=== PATIENT | male | born 1970 | race Caucasian/White ===

== ENCOUNTER 2018-10-31 18:21 | Inpatient (IN) | payer OTHER ==
[2018-10-31 19:38] VITALS: BMI 19.5
--- NOTE | 2018-10-31 22:06 | HP ---
COWS - Scale Resting Pulse: 1= [place] 81-100 Sweatin=Flushed/Facial Moisture Restless Observation: 1= Difficult to Sit Still Pupil Size: 1= Pupils >than Normal Bone or Joint Aches: 2= Severe Diffuse Aches Runny Nose/ Eye Tearin= Runny Nose/Eyes GI Upset > 30mins: 2= Nausea/Diarrhea Tremor Observation: 2= Slight Tremor Visible Yawning Observation: 1= 1-2x During Session Anxiety or Irritability: 1=Feels Anxious/Irritable Goose Flesh Skin: 0=Smooth Skin COWS Score: 15 CIWA Score - Admission Criteria OASAS Guidelines: Admission for Medically Managed Detox: Requires at least one of the followin. CIWA greater than 12 2. Seizures within the past 24 hours 3. Delirium tremens within the past 24 hours 4. Hallucinations within the past 24 hours 5. Acute intervention needed for co occurring medical disorder 6. Acute intervention needed for co occurring psychiatric disorder 7. Severe withdrawal that cannot be handled at a lower level of care (continued vomiting, continued diarrhea, abnormal vital signs) requiring intravenous medication and/or fluids 8. Admission ROS [facility] - [facility] Chief Complaint: DEPENDENT ON HEROIN ONLY Allergies/Adverse Reactions: Allergies Allergy/AdvReac Type Severity Reaction Status Date / Time No Known Allergies Allergy Verified 05/22/15 21:23 History of Present Illness: THE PT. IS REQUESTING ADMISSION TO THE DETOX UNIT AND CAME FOR H AND PE Exam Limitations: No Limitations - Ebola screening Have you traveled outside of the country in the last 21 days: No (N) Have you had contact with anyone from an Ebola affected area: No Have you been sick,other than usual withdrawal symptoms: No Do you have a fever: No - Review of Systems Constitutional: See HPI, Malaise, Weakness EENT: reports: See HPI, Tearing Respiratory: reports: See HPI Cardiac: reports: See HPI GI: reports: See HPI, Nausea, Abdominal cramping : reports: No Symptoms Reported, See HPI Integumentary: reports: See HPI, Flushing, Sweating Neuro: reports: See HPI, Headache, Tremors, Weakness Endocrine: reports: See HPI Hematology: reports: See HPI Psychiatric: reports: Judgement Intact, Orientated x3, Anxious, Depressed Patient History - Patient Medical History Hx Anemia: No Hx Asthma: No Hx Chronic Obstructive Pulmonary Disease (COPD): No Hx Cancer: No Hx Cardiac Disorders: No Hx Congestive Heart Failure: No Hx Hypertension: No Hx Hypercholesterolemia: No Hx Pacemaker: No HX Cerebrovascular Accident: No Hx Seizures: No Hx Dementia: No Hx Diabetes: No Hx Gastrointestinal Disorders: No Hx Liver Disease: No Hx Genitourinary Disorders: No Hx Sexually Transmitted Disorders: No Hx Renal Disease (ESRD): No Hx Thyroid Disease: No Hx Human Immunodeficiency Virus (HIV): No (last 2013 negative) Hx Hepatitis C: No Hx Depression: No Hx Suicide Attempt: No Hx Bipolar Disorder: No Hx Schizophrenia: No - Patient Surgical History Past Surgical History: No Hx Neurologic Surgery: No Hx Cataract Extraction: No Hx Cardiac Surgery: No Hx Lung Surgery: No Hx Breast Surgery: No Hx Breast Biopsy: No Hx Abdominal Surgery: No Hx Appendectomy: No Hx Cholecystectomy: Yes (open cholecystectomy in 2009 in pr) Hx Genitourinary Surgery: No Hx Section: No Hx Orthopedic Surgery: No Anesthesia Reaction: No - PPD History Date: 05/24/15 - Smoking Cessation Smoking history: Current every day smoker Have you smoked in the past 12 months: Yes Aproximately how many cigarettes per day: 40 Cigars Per Day: 0 Hx Chewing Tobacco Use: No Initiated information on smoking cessation: Yes 'Breaking Loose' booklet given: 10/31/18 - Substance & Tx. History Hx Alcohol Use: No Hx Substance Use: Yes Substance Use Type: Heroin Hx Substance Use Treatment: Yes - Substances Abused Heroin Route: Inhalation Frequency: Daily Amount used: 10 B/D Age of first use: 14 Date of Last Use: 10/31/18 Family Disease History - Family Disease History Family Disease History: CA: Mother (MOTHER HAD CA. OF THE BREAST AND ) Admission Physical Exam [facility] - Vital Signs Vital Signs: Vital Signs - 24 hr 10/31/18 19:36 Temperature 98.3 F Pulse Rate 97 H Respiratory 18 Rate Blood Pressure 105/66 - Physical General Appearance: Yes: No Apparent Distress, Nourished, Appropriately Dressed , Tremorous, Sweating, Anxious HEENTM: Yes: Hearing grossly Normal, Normocephalic, Normal Voice, ZOIE, Pharynx Normal Respiratory: Yes: Chest Non-Tender, Lungs Clear, Normal Breath Sounds, No Respiratory Distress, No Accessory Muscle Use Neck: Yes: No masses,lesions,Nodules, Supple, Trachea in good position Breast: Yes: Axillae without masses Cardiology: Yes: Regular Rhythm, S1, S2, Tachycardia Abdominal: Yes: Within Normal Limits, Normal Bowel Sounds, Non Tender, Protuberent Back: Yes: Normal Inspection Musculoskeletal: Yes: full range of Motion, Gait Steady, Pelvis Stable, Muscle Pain, Muscle weakness Extremities: Yes: Normal Capillary Refill, Normal Range of Motion, Non-Tender, Tremors Neurological: Yes: nurse prn II-XII NML intact, Fully Oriented, Alert, Motor Strength 5/5, Normal Response Integumentary: Yes: Normal Color, Warm, Moist - Diagnostic (1) Heroin dependence Current Visit: No Status: Chronic (2) Nicotine dependence Current Visit: No Status: Chronic Qualifiers: Nicotine product type: cigarettes Cleared for Admission [facility] - Detox or Rehab [facility] Level of Care: Medically Supervised Detox Regimen/Protocol: Methadone [facility] Breath Alcohol Content Breath Alcohol Content: 0 Urine Drug Screen - Results Drug Screen Negative: No Urine Drug Screen Results: THC-Marijuana, OPI-Opiates Inpatient Rehab Admission - Rehab Decision to Admit Inpatient rehab admission?: No
[2018-10-31] MEDS ORDERED: P-EPHED 60MG/TRIPROLIDI 2.5MG TABLET PO PRN (22:09)
[2018-10-31] MEDS ORDERED: MAGNESIUM HYDROX 2400MG/30ML ORAL SUSPENSION 30 ML CUP PO PRN (22:09)
[2018-10-31] MEDS ORDERED: guaiFENesin/D-METHORPHAN HB 10 ML UNIT-DOSE CUPS PO PRN (22:09)
[2018-10-31] MEDS ORDERED: MAGNESIUM CITRATE 300 ML BOTTLE PO PRN (22:09)
[2018-10-31] MEDS ORDERED: IBUPROFEN 400 MG TABLET (FP) PO PRN (22:09)
[2018-10-31] MEDS ORDERED: MAG HYDROX/AL HYDROX/SIMETH 30 ML UNIT-DOSE CUP PO PRN (22:09)
[2018-10-31] MEDS ORDERED: MENTHOL/PHENOL 1 EACH UD MM PRN (22:09)
[2018-10-31] MEDS ORDERED: LOPERAMIDE HCL 2 MG CAPSULE PO PRN (22:09)
[2018-10-31] MEDS ORDERED: NICOTINE POLACRILEX 4 MG GUM BC PRN (22:09)
[2018-10-31] MEDS ORDERED: METHADONE HCL 10 MG TABLET (FOR DETOX USE ONLY) PO ONE ×2 (23:00)
[2018-11-01] MEDS ORDERED: METHADONE HCL 10 MG TABLET (FOR DETOX USE ONLY) PO ONE ×2 (01:29→10:00)
--- NOTE | 2018-11-01 09:36 | PN ---
[facility] COWS - Scale Resting Pulse: 0= [place] 80 or Below Sweatin= Chills/Flushing Restless Observation: 3= Extraneous Movement Pupil Size: 1= Pupils >than Normal Bone or Joint Aches: 2= Severe Diffuse Aches Runny Nose/ Eye Tearin= Runny Nose/Eyes GI Upset > 30mins: 2= Nausea/Diarrhea Tremor Observation of Outstretched Hands: 2= Slight Tremor Visible Yawning Observation: 1= 1-2x During Session Anxiety or Irritability: 2=Irritable/Anxious Goose Flesh Skin: 0=Smooth Skin COWS Score: 16 [facility] Progress Note (SOAP) Subjective: alert,irritable,anxious,interrupted sleep,pain in the body and back Objective: 11/01/18 09:35 Vital Signs Temperature 98.4 F 11/01/18 09:11 Pulse Rate 85 11/01/18 09:11 Respiratory Rate 18 11/01/18 09:11 Blood Pressure 111/57 L 11/01/18 09:11 O2 Sat by Pulse Oximetry (%) Assessment: 11/01/18 09:36 withdrawal symptom labs pending Plan: continue detox
[2018-11-01] MEDS: diazePAM 5 MG TABLET PO PRN ×2 (10:32→22:18)
[2018-11-01] MEDS: PRENATAL VITAMINS W/ FOLIC ACID TABLET (FP) PO SCH (10:32)
[2018-11-01] MEDS: ACETAMINOPHEN 325 MG TABLET (FP) PO PRN (10:33)
[2018-11-01] MEDS: NICOTINE 21 MG/24 HOURS TOPICAL PATCH TD SCH (10:34)
[2018-11-01 10:58] LABS: HEMATOCRIT 45.4 % (35.4-49); HEMOGLOBIN 15.5 GM/dL (11.7-16.9); MCH 30.5 pg (25.7-33.7); MCHC 34.1 g/dl (32.0-35.9); MEAN CELL VOLUME 89.6 fl (80-96); MEAN PLT VOLUME 7.8 fl (7.5-11.1); PLATELET COUNT 252 K/MM3 (134-434); RBC 5.07 M/mm3 (4.00-5.60); RDW 14.2 % (11.9-15.9); WHITE BLOOD COUNT 10.4 K/mm3 (4.0-10.0)
[2018-11-01 11:21] LABS: ALBUMIN 3.6 g/dl (3.4-5.0); ALK PHOS 56 U/L (45-117); ANION GAP 7 MMOL/L (8-16); BILIRUBIN,TOTAL 0.6 mg/dL (0.2-1); BLOOD UREA NITROGEN 16 mg/dL (7-18); CALCIUM 8.8 mg/dL (8.5-10.1); CHLORIDE 108 mmol/L (98-107); CO2 27 mmol/L (21-32); CREATININE 0.8 mg/dL (0.55-1.3); GLUCOSE,RANDOM 91 mg/dL (74-106); POTASSIUM 4.1 mmol/L (3.5-5.1); SGOT/AST 24 U/L (15-37); SGPT/ALT 49 U/L (13-61); SODIUM 142 mmol/L (136-145)
[2018-11-01] MEDS: THIAMINE HCL 100 MG TABLET (FP) PO SCH (22:17)
[2018-11-02] MEDS ORDERED: METHADONE HCL 5 MG TABLET (FOR DETOX USE ONLY) PO ONE (10:00)
[2018-11-02] MEDS: NICOTINE 21 MG/24 HOURS TOPICAL PATCH TD SCH (10:21)
[2018-11-02] MEDS: PRENATAL VITAMINS W/ FOLIC ACID TABLET (FP) PO SCH (10:21)
[2018-11-02] MEDS: diazePAM 5 MG TABLET PO PRN ×2 (10:21→22:12)
[2018-11-02] MEDS: hydrOXYzine PAMOATE 50 MG CAPSULE (FP) PO PRN ×2 (10:24→22:11)
--- NOTE | 2018-11-02 17:06 | PN ---
[facility] COWS - Scale Resting Pulse: 1= [place] 81-100 Sweatin= Chills/Flushing Restless Observation: 0= Sits Still Pupil Size: 0= Normal to Room Light Bone or Joint Aches: 2= Severe Diffuse Aches Runny Nose/ Eye Tearin= None GI Upset > 30mins: 2= Nausea/Diarrhea Tremor Observation of Outstretched Hands: 0= None Yawning Observation: 1= 1-2x During Session Anxiety or Irritability: 2=Irritable/Anxious Goose Flesh Skin: 3=Piloerection COWS Score: 12 [facility] Progress Note (SOAP) Subjective: Diarrhea, Interrupted Sleep, Poor Appetite, Body Aches. Objective: PATIENT A & O X 3. IN NO ACUTE DISTRESS. 11/02/18 17:04 Vital Signs Temperature 97.9 F 11/02/18 17:01 Pulse Rate 87 11/02/18 17:01 Respiratory Rate 18 11/02/18 17:01 Blood Pressure 91/66 11/02/18 17:01 O2 Sat by Pulse Oximetry (%) Laboratory Tests 11/01/18 11/01/18 11/01/18 08:10 08:10 08:10 WBC 10.4 H RBC 5.07 Hgb 15.5 Hct 45.4 MCV 89.6 MCH 30.5 MCHC 34.1 RDW 14.2 Plt Count 252 MPV 7.8 D Sodium 142 Potassium 4.1 Chloride 108 H Carbon Dioxide 27 Anion Gap 7 L BUN 16 Creatinine 0.8 Creat Clearance w eGFR > 60 Random Glucose 91 Calcium 8.8 Total Bilirubin 0.6 AST 24 ALT 49 Alkaline Phosphatase 56 Total Protein 7.0 Albumin 3.6 RPR Titer Nonreactive LABS NOTED. Assessment: 11/02/18 17:05 WITHDRAWAL SYMPTOMS. Plan: CONTINUE DETOX. INCREASE DAILY PO FLUID INTAKE.
[2018-11-02] MEDS: THIAMINE HCL 100 MG TABLET (FP) PO SCH (22:11)
[2018-11-02] MEDS: MELATONIN 5 MG TABLETS PO PRN (22:12)
--- NOTE | 2018-11-03 09:48 | PN ---
S Progress Note (SOAP) Subjective: alert,irritable,anxious,interrupted sleep,pain in the body Objective: 11/03/18 09:47 Vital Signs Temperature 97.5 F L 11/03/18 09:03 Pulse Rate 88 11/03/18 09:03 Respiratory Rate 18 11/03/18 09:03 Blood Pressure 122/71 11/03/18 09:03 O2 Sat by Pulse Oximetry (%) Assessment: 11/03/18 09:47 withdrawal symptom Plan: continue detox
[2018-11-03] MEDS ORDERED: METHADONE HCL 5 MG TABLET (FOR DETOX USE ONLY) PO ONE (10:00)
[2018-11-03] MEDS: NICOTINE 21 MG/24 HOURS TOPICAL PATCH TD SCH (10:39)
[2018-11-03] MEDS: PRENATAL VITAMINS W/ FOLIC ACID TABLET (FP) PO SCH (10:39)
[2018-11-03] MEDS: diazePAM 5 MG TABLET PO PRN ×2 (10:39→22:06)
[2018-11-03] MEDS: THIAMINE HCL 100 MG TABLET (FP) PO SCH (22:06)
[2018-11-04] MEDS ORDERED: METHADONE HCL 10 MG TABLET (FOR DETOX USE ONLY) PO ONE (10:00)
[2018-11-04] MEDS: PRENATAL VITAMINS W/ FOLIC ACID TABLET (FP) PO SCH (10:05)
[2018-11-04] MEDS: NICOTINE 21 MG/24 HOURS TOPICAL PATCH TD SCH (10:05)
[2018-11-04] MEDS: ACETAMINOPHEN 325 MG TABLET (FP) PO PRN (10:07)
--- NOTE | 2018-11-04 10:22 | PN ---
S Progress Note (SOAP) Subjective: alert,irritable,anxious,interrupted sleep Objective: 11/04/18 10:21 Vital Signs Temperature 97.7 F 11/04/18 09:16 Pulse Rate 79 11/04/18 09:16 Respiratory Rate 18 11/04/18 09:16 Blood Pressure 109/57 L 11/04/18 09:16 O2 Sat by Pulse Oximetry (%) Assessment: 11/04/18 10:21 withdrawal symptom Plan: continue detox,discharge in am
[2018-11-04] MEDS: MELATONIN 5 MG TABLETS PO PRN (22:18)
[2018-11-04] MEDS: hydrOXYzine PAMOATE 50 MG CAPSULE (FP) PO PRN (22:18)
[2018-11-04] MEDS: THIAMINE HCL 100 MG TABLET (FP) PO SCH (22:18)
[2018-11-05] MEDS ORDERED: METHADONE HCL 5 MG TABLET (FOR DETOX USE ONLY) PO ONE (06:00)
[2018-11-05 08:41] VITALS: BP 109/57; PULSE 78; TEMP 97.5
--- NOTE | 2018-11-05 15:20 | DS ---
[facility] Detox Discharge Summary Admission Date: 10/31/18 Discharge Date: 11/05/18 - History Present History: Opioid Dependence Additional Comments: pt successfully completed opioid detox protocol. - Physical Exam Results Vital Signs: Vital Signs Temperature 97.5 F L 11/05/18 08:40 Pulse Rate 78 11/05/18 08:40 Respiratory Rate 18 11/05/18 08:40 Blood Pressure 109/57 L 11/05/18 08:40 O2 Sat by Pulse Oximetry (%) - Treatment Hospital Course: Detox Protocol Followed, Detoxed Safely, Responded well, Discharged Condition Good - Medication Discharge Medications: Ambulatory Orders NK [No Known Home Medication] 11/01/18
== END 2018-11-05 09:02 | disposition home or self-care (01) | DRG 773 ==
LOC: YASAS 18:21 → Y6N 23:30
PROVIDERS: ADMIT Surgery; ATTEND Surgery
PROC: HZ2ZZZZ Detoxification Services for Substance Abuse Treatment (ICD-10-PCS; principal; 2018-10-31)
DX: F11.23 Opioid dependence with withdrawal (principal); F17.210 Nicotine dependence, cigarettes, uncomplicated; R00.0 Tachycardia, unspecified
CPT/HCPCS: 36415; 80053; 85027; 86593